=== PATIENT | female | born 1975 | race African-American/Black ===

== ENCOUNTER 2017-12-20 00:43 | Observation (INO) ==
[2017-12-20] MEDS ORDERED: SODIUM CHLORIDE 0.9% 1,000 ML IV STA (01:10)
[2017-12-20] MEDS ORDERED: PANTOPRAZOLE 40 MG VIAL IV STA (01:10)
[2017-12-20] MEDS ORDERED: DICYCLOMINE 20 MG/2 ML AMP IM ONE ×2 (01:10→01:27)
[2017-12-20] MEDS ORDERED: methylPREDNISolone SOD SUC 125 MG/2 ML VIAL IV STA (01:10)
[2017-12-20] MEDS ORDERED: metroNIDAZOLE INJ 500 MG in PREMIX 1 EACH IV STA (01:10)
[2017-12-20] MEDS ORDERED: methylPREDNISolone SOD SUC 125 MG/2 ML VIAL ONE (01:27)
[2017-12-20] MEDS ORDERED: PANTOPRAZOLE 40 MG VIAL IV ONE (01:27)
[2017-12-20] MEDS ORDERED: metroNIDAZOLE 500 MG/100 ML PREMIX IV ONE (01:27)
[2017-12-20 02:25] LABS: Basophils % 0.3 % (0.0-0.8); Eosinophils # 0.1 10*3/uL (0.0-0.87); Eosinophils % 1.1 % (0.00-10.9); Hematocrit 38.6 VOL% (35.7-47.0); Hemoglobin 13.1 GM/DL (12.0-16.0); Immature Granulocytes % 1.1 %; Immature Granulocytes Absolute 0.13 #; Lymphocytes % 34.7 % (21.3-54.2); Mean Corpuscular HGB Conc 33.9 GM/DL (32-36); Mean Corpuscular Hemoglobin 31 PG (27-34); Mean Platelet Volume 12.1 FL (9.6-12.0); Monocytes # 0.6 10*3/uL (0.11-0.8); Monocytes % 5.5 % (1.7-12.7); Neutrophils # 6.7 10*3/uL (1.4-7.4); Neutrophils % 57.3 % (38.7-73.9); Platelet Count 171 T/CUMM (130-400); Red Blood Count 4.29 MC/CUMM (3.8-5.5); Red Cell Distribution Width 12.1 % (9.3-17.3); White Blood Count 11.6 T/CUMM (4-12)
[2017-12-20 02:30] LABS: Lactic Acid 1.1 MMOL/L (0.4-2.0)
[2017-12-20 02:32] LABS: Alanine Aminotransferase 12 U/L (13-56); Albumin 3.3 G/DL (3.4-5.0); Alkaline Phosphatase 26 U/L (45-117); Amylase 38 U/L (25-115); Aspartate Amino Transferase 29 U/L (0-37); Bilirubin,Total < 0.39 MG/DL (0.2-1.0); Blood Urea Nitrogen 17 MG/DL (7-18); Calcium 7.7 MG/DL (8.5-10.1); Glucose 89 MG/DL (74-106); Osmolality,Calculated 283.1 MOS/KG (273-304); Potassium 4.2 MMOL/L (3.5-5.1); Sodium 142 MMOL/L (136-145); Total Protein 5.7 G/DL (6.4-8.3)
[2017-12-20 02:57] LABS: PT Patient Result 10.6 SECS; Partial Thromboplastin Time 22.4 SECS (0-40)
[2017-12-20 02:58] LABS: Platelet Estimate Normal
[2017-12-20] MEDS ORDERED: NICOTINE 21 MG/24 HR PATCH TRANSDERM PRN (04:36)
[2017-12-20] MEDS ORDERED: PROMETHAZINE 25 MG/1 ML VIAL IM PRN (04:36)
[2017-12-20] MEDS ORDERED: CALCIUM GLUCONATE 2,000 MG in SODIUM CHLORIDE 0.9% 100 ML IV ONE (05:30)
[2017-12-20] MEDS: SODIUM CHLORIDE 0.9% 1,000 ML IV SCH ×2 (06:07→15:02)
[2017-12-20] MEDS: CIPROFLOXACIN INJ 400 MG in PREMIX 1 EACH IV SCH ×3 (06:07→20:37)
[2017-12-20] MEDS ORDERED: PANTOPRAZOLE 40 MG VIAL IV SCH (09:00)
[2017-12-20] MEDS: HYDROmorphone 2 MG/1 ML VIAL IV PRN ×2 (09:05→21:13)
[2017-12-20] MEDS: ONDANSETRON 4 MG/2 ML VIAL IV PRN ×2 (09:06→17:58)
[2017-12-20] MEDS ORDERED: BISACODYL 5 MG TABLET PO ONE (12:00)
[2017-12-20] MEDS ORDERED: POLYETHYLENE GLYCOL POWDER 255 GM BOTTLE PO ONE (12:15)
[2017-12-20 13:06] LABS: Hematocrit 35.1 VOL% (35.7-47.0); Hemoglobin 12.2 GM/DL (12.0-16.0)
[2017-12-20] MEDS: PANTOPRAZOLE 40 MG VIAL IV SCH (13:21)
[2017-12-20] MEDS: metroNIDAZOLE INJ 500 MG in PREMIX 1 EACH IV SCH (13:22)
[2017-12-20 17:51] LABS: Hematocrit 32.5 VOL% (35.7-47.0); Hemoglobin 11.6 GM/DL (12.0-16.0)
[2017-12-20] MEDS ORDERED: MAGNESIUM CITRATE 300 ML BOTTLE PO ONE (21:00)
[2017-12-20 22:00] LABS: Hemoglobin 11.4 GM/DL (12.0-16.0)
[2017-12-21] MEDS: PANTOPRAZOLE 40 MG VIAL IV SCH ×2 (01:32→14:12)
[2017-12-21] MEDS: metroNIDAZOLE INJ 500 MG in PREMIX 1 EACH IV SCH ×2 (01:32→14:12)
[2017-12-21] MEDS: SODIUM CHLORIDE 0.9% 1,000 ML IV SCH ×3 (01:37→18:42)
[2017-12-21] MEDS: CIPROFLOXACIN INJ 400 MG in PREMIX 1 EACH IV SCH ×3 (04:53→21:14)
[2017-12-21] MEDS ORDERED: MAGNESIUM CITRATE 300 ML BOTTLE PO ONE (05:02)
[2017-12-21 07:38] LABS: Basophils % 0.3 % (0.0-0.8); Eosinophils # 0.1 10*3/uL (0.0-0.87); Eosinophils % 0.5 % (0.00-10.9); Hematocrit 31.1 VOL% (35.7-47.0); Hemoglobin 10.7 GM/DL (12.0-16.0); Immature Granulocytes % 0.3 %; Immature Granulocytes Absolute 0.03 #; Lymphocytes % 50.4 % (21.3-54.2); Mean Corpuscular HGB Conc 34.4 GM/DL (32-36); Mean Corpuscular Hemoglobin 31 PG (27-34); Mean Corpuscular Volume 90.4 FL (87-102); Mean Platelet Volume 11.4 FL (9.6-12.0); Monocytes # 0.6 10*3/uL (0.11-0.8); Monocytes % 5.3 % (1.7-12.7); Neutrophils # 5.2 10*3/uL (1.4-7.4); Neutrophils % 43.2 % (38.7-73.9); Platelet Count 160 T/CUMM (130-400); Red Blood Count 3.44 MC/CUMM (3.8-5.5); Red Cell Distribution Width 12.1 % (9.3-17.3); White Blood Count 11.9 T/CUMM (4-12)
[2017-12-21 07:58] LABS: Alanine Aminotransferase 12 U/L (13-56); Albumin 3.2 G/DL (3.4-5.0); Alkaline Phosphatase 23 U/L (45-117); Aspartate Amino Transferase 21 U/L (0-37); Bilirubin,Total < 0.39 MG/DL (0.2-1.0); Blood Urea Nitrogen 8 MG/DL (7-18); Calcium 8.4 MG/DL (8.5-10.1); Glucose 88 MG/DL (74-106); Osmolality,Calculated 279.1 MOS/KG (273-304); Potassium 3.6 MMOL/L (3.5-5.1); Sodium 142 MMOL/L (136-145); Total Protein 5.3 G/DL (6.4-8.3)
[2017-12-21] MEDS ORDERED: MIDAZOLAM 2 MG/2 ML VIAL ONE (10:14)
[2017-12-21] MEDS ORDERED: ONDANSETRON 4 MG/2 ML VIAL ONE (10:15)
[2017-12-21] MEDS ORDERED: BUDESONIDE/FORMOTEROL 80-4.5 INHALER 6.9 GM INH PRN (10:25)
[2017-12-21] MEDS: DIVALPROEX ER 500 MG TABLET PO SCH ×2 (12:23→21:15)
[2017-12-21] MEDS: HYDROmorphone 2 MG/1 ML VIAL IV PRN ×2 (14:18→21:16)
[2017-12-21] MEDS: ONDANSETRON 4 MG/2 ML VIAL IV PRN ×2 (14:19→21:15)
[2017-12-21] MEDS ORDERED: PARoxetine 20 MG TABLET PO SCH (21:00)
[2017-12-22] MEDS: PANTOPRAZOLE 40 MG VIAL IV SCH (02:17)
[2017-12-22] MEDS: metroNIDAZOLE INJ 500 MG in PREMIX 1 EACH IV SCH (02:20)
[2017-12-22] MEDS: SODIUM CHLORIDE 0.9% 1,000 ML IV SCH ×2 (04:30→06:43)
[2017-12-22] MEDS: CIPROFLOXACIN INJ 400 MG in PREMIX 1 EACH IV SCH (06:45)
[2017-12-22] MEDS: HYDROmorphone 2 MG/1 ML VIAL IV PRN (08:33)
[2017-12-22] MEDS: ONDANSETRON 4 MG/2 ML VIAL IV PRN (08:34)
[2017-12-22] MEDS: DIVALPROEX ER 500 MG TABLET PO SCH (08:35)
[2017-12-22] MEDS ORDERED: PANTOPRAZOLE 40 MG TABLET PO SCH (09:00)
[2017-12-22 11:29] VITALS: BP 118/60
[2017-12-22] MEDS ORDERED: ONDANSETRON 4 MG/2 ML VIAL ONE (12:05)
[2017-12-22] MEDS ORDERED: PROPOFOL 200 MG/20 ML VIAL IV ONE (12:05)
[2017-12-22] MEDS ORDERED: LIDOCAINE 100 MG/5 ML SYRINGE ONE (12:05)
== END 2017-12-22 13:30 | disposition home or self-care (01) ==
LOC: EDBD → EDUNIT# → N.ED 00:43 → INTOOBSV 02:22 → N.EDINP 02:22 → N.5E 03:57
PROVIDERS: ADMIT Internal Medicine; ATTEND Internal Medicine
PROC: COLONBX (2017-12-21 09:35)